=== PATIENT | male | born 1990 | race Caucasian/White ===

== ENCOUNTER 2016-10-15 10:00 | Inpatient (IN) | payer OTHER ==
[2016-10-15 10:42] VITALS: BMI 24.3
--- NOTE | 2016-10-15 13:20 | HP ---
COWS - Scale Resting Pulse: 0= [place] 80 or Below Sweatin= Chills/Flushing Restless Observation: 3= Extraneous Movement Pupil Size: 2= Moderately Dilated Bone or Joint Aches: 4=Acute Joint/Muscle Pain Runny Nose/ Eye Tearin= Runny Nose/Eyes GI Upset > 30mins: 3= Vomiting/Diarrhea Tremor Observation: 2= Slight Tremor Visible Yawning Observation: 2= >3x During Session Anxiety or Irritability: 1=Feels Anxious/Irritable Goose Flesh Skin: 0=Smooth Skin COWS Score: 20 Admission ROS S - HPI Chief Complaint: DETOX TX FOR HEROIN DEPENDENCE Allergies/Adverse Reactions: Allergies Allergy/AdvReac Type Severity Reaction Status Date / Time No Known Allergies Allergy Verified 10/15/16 11:07 History of Present Illness: 26 Y/O H/M WITH A HX OF HEROIN DEPENDENCE AND SPORADIC USE OF ECSTACY AND MARIJUANA SEEKING DETOX TX. FIRST TIME IN DETOX. Exam Limitations: No Limitations - Ebola screening Have you traveled outside of the country in the last 21 days: No Have you had contact with anyone from an Ebola affected area: No Have you been sick,other than usual withdrawal symptoms: No Do you have a fever: No - Review of Systems Constitutional: Chills, Loss of Appetite, Night Sweats, Changes in sleep EENT: reports: Tearing, Nose Congestion Respiratory: reports: No Symptoms reported Cardiac: reports: No Symptoms Reported GI: reports: Diarrhea, Nausea, Poor Fluid Intake, Vomiting : reports: No Symptoms Reported Musculoskeletal: reports: Back Pain, Joint Pain, Muscle Pain Integumentary: reports: Lumps (LEFT FOREARM SWELLING DUE TO IVD INJ.), Sweating Neuro: reports: No Symptoms reported Endocrine: reports: No Symptoms Reported Hematology: reports: No Symptoms Reported Psychiatric: reports: Orientated x3, Anxious Other Systems: Reviewed and Negative Patient History - Patient Medical History Hx Anemia: No Hx Asthma: No Hx Chronic Obstructive Pulmonary Disease (COPD): No Hx Cardiac Disorders: No Hx Hypertension: No Hx Hypercholesterolemia: No HX Cerebrovascular Accident: No Hx Seizures: No Hx Diabetes: No Hx Gastrointestinal Disorders: No Hx Genitourinary Disorders: No Hx Sexually Transmitted Disorders: No Hx Renal Disease (ESRD): No Hx Thyroid Disease: No Hx Human Immunodeficiency Virus (HIV): No (NEGATIVE HX) Hx Hepatitis C: No Hx Depression: No Hx Suicide Attempt: No Hx Bipolar Disorder: No Hx Schizophrenia: No - Patient Surgical History Past Surgical History: No Hx Neurologic Surgery: No Hx Cataract Extraction: No Hx Cardiac Surgery: No Hx Lung Surgery: No Hx Breast Surgery: No Hx Breast Biopsy: No Hx Abdominal Surgery: No Hx Appendectomy: No Hx Cholecystectomy: No Hx Genitourinary Surgery: No Hx Orthopedic Surgery: No Anesthesia Reaction: No - PPD History Previous Implant?: Yes Documented Results: Negative w/o proof Implanted On Prior R Admission?: No Results: TO BE DONE PPD to be Administered?: Yes - Reproductive History Patient is a Female of Child Bearing Age (11 -55 yrs old): No (MALE) - Smoking Cessation Smoking history: Current every day smoker Have you smoked in the past 12 months: Yes Aproximately how many cigarettes per day: 20 Hx Chewing Tobacco Use: No Initiated information on smoking cessation: Yes 'Breaking Loose' booklet given: 10/15/16 - Substance & Tx. History Hx Alcohol Use: No Hx Substance Use: Yes (HEROIN) Substance Use Type: Heroin Hx Substance Use Treatment: Yes - Substances Abused Heroin Route: Injection Frequency: Daily Amount used: 30 bags Age of first use: 26 Date of Last Use: 10/14/16 Family Disease History - Family Disease History Family Disease History: Diabetes: Grandparent, Other: Father (HTN) Admission Physical Exam BHS - Vital Signs Vital Signs: Vital Signs - 24 hr 10/15/16 10:39 Temperature 98.2 F Pulse Rate 76 Respiratory 18 Rate Blood Pressure 142/70 - Physical General Appearance: Yes: Moderate Distress, Irritable, Anxious HEENTM: Yes: EOMI, Normocephalic, ZOEY, Pharynx Normal Respiratory: Yes: Chest Non-Tender, Lungs Clear, Normal Breath Sounds, No Respiratory Distress Neck: Yes: Supple, Trachea in good position Breast: Yes: Breast Exam Deferred Cardiology: Yes: Regular Rhythm, Regular Rate, S1, S2 Abdominal: Yes: Normal Bowel Sounds, Non Tender, Flat, Soft Genitourinary: Yes: Other (N/C) Back: Yes: Within Normal Limits Musculoskeletal: Yes: full range of Motion, Gait Steady Extremities: Yes: Normal Range of Motion, Non-Tender Neurological: Yes: dietary services manager II-XII NML intact, Fully Oriented, Alert, Motor Strength 5/5 Integumentary: Yes: Dry, Warm, Track Gutierres (BOTH FOREARMS. SWELLING AND PAIN TO IVD TRACK ON LEFT FOREARM.) Lymphatic: Yes: Within Normal Limits - Diagnostic (1) Opioid dependence with withdrawal Current Visit: Yes Status: Acute (2) Marijuana abuse Current Visit: Yes Status: Acute (3) Ecstasy abuse Current Visit: Yes Status: Acute Cleared for Admission [facility] - Detox or Rehab [facility] Level of Care: Medically Managed Detox Regimen/Protocol: Methadone [facility] Breath Alcohol Content Breath Alcohol Content: 0 Urine Drug Screen - Results Drug Screen Negative: No Urine Drug Screen Results: THC-Marijuana, OPI-Opiates, MDMA-Ecstasy, TCA- Tricyclic Antidepress
[2016-10-15] MEDS ORDERED: MAG HYDROX/AL HYDROX/SIMETH 30 ML UNIT-DOSE CUP PO PRN (13:30)
[2016-10-15] MEDS ORDERED: MAGNESIUM CITRATE 300 ML BOTTLE PO PRN (13:30)
[2016-10-15] MEDS ORDERED: NICOTINE POLACRILEX 4 MG GUM BUC PRN (13:30)
[2016-10-15] MEDS ORDERED: ACETAMINOPHEN 325 MG TABLET (FP) PO PRN (13:30)
[2016-10-15] MEDS ORDERED: LOPERAMIDE HCL 2 MG CAPSULE PO PRN (13:30)
[2016-10-15] MEDS ORDERED: MENTHOL/PHENOL 1 EACH UD MM PRN (13:30)
[2016-10-15] MEDS ORDERED: guaiFENesin/D-METHORPHAN HB 10 ML UNIT-DOSE CUPS PO PRN (13:30)
[2016-10-15] MEDS ORDERED: P-EPHED 60MG/TRIPROLIDI 2.5MG TABLET PO PRN (13:30)
[2016-10-15] MEDS ORDERED: MAGNESIUM HYDROX 2400MG/30ML ORAL SUSPENSION 30 ML CUP PO PRN (13:30)
[2016-10-15] MEDS ORDERED: METHADONE HCL 10 MG TABLET (FOR DETOX USE ONLY) PO ONE ×3 (13:45→23:00)
[2016-10-15] MEDS: diazePAM 5 MG TABLET PO PRN ×2 (14:49→19:19)
[2016-10-15] MEDS: NICOTINE 21 MG/24 HOURS TOPICAL PATCH TD SCH (14:52)
[2016-10-15] MEDS: IBUPROFEN 400 MG TABLET (FP) PO PRN (15:10)
[2016-10-15 17:24] LABS: URINE APPEARANCE CLEAR; URINE BILIRUBIN NEGATIVE (NEGATIVE); URINE BLOOD NEGATIVE (NEGATIVE); URINE COLOR YELLOW; URINE GLUCOSE (UA) NEGATIVE (NEGATIVE); URINE KETONE NEGATIVE (NEGATIVE); URINE LEUK ESTERASE NEGATIVE (NEGATIVE); URINE NITRITE NEGATIVE (NEGATIVE); URINE PROTEIN 2+ (NEGATIVE); URINE UROBILINOGEN NEGATIVE E.U./dl (0.2-1.0)
[2016-10-15 18:01] LABS: URINE MUCUS FEW; URINE RBC 1 /hpf (0-3); URINE WBC 4 /hpf (3-5)
[2016-10-15] MEDS: THIAMINE HCL 100 MG TABLET (FP) PO SCH (22:39)
[2016-10-15] MEDS: diphenhydrAMINE HCL 50 MG CAPSULE PO PRN (22:39)
[2016-10-15] MEDS: BACITRACIN 0.9 GM PACKET TP SCH (22:39)
[2016-10-16] MEDS: diazePAM 5 MG TABLET PO PRN ×4 (06:31→22:48)
[2016-10-16] MEDS ORDERED: METHADONE HCL 10 MG TABLET (FOR DETOX USE ONLY) PO ONE (10:00)
[2016-10-16 11:13] LABS: MCH 25.8 pg (25.7-33.7); MCHC 32.6 g/dl (32.0-35.9); MEAN CELL VOLUME 79.2 fl (80-96); MEAN PLT VOLUME 8.7 fl (7.5-11.1); PLATELET COUNT 486 K/MM3 (134-434); RDW 13.7 % (11.9-15.9); WHITE BLOOD COUNT 6.3 K/mm3 (4.0-10.0)
[2016-10-16 11:23] LABS: SICKLE CELL SCREEN NEGATIVE (NEGATIVE)
[2016-10-16] MEDS: PRENATAL VITAMINS W/ FOLIC ACID TABLET (FP) PO SCH (11:36)
[2016-10-16] MEDS: NICOTINE 21 MG/24 HOURS TOPICAL PATCH TD SCH (11:37)
[2016-10-16] MEDS: BACITRACIN 0.9 GM PACKET TP SCH ×3 (11:37→22:44)
[2016-10-16] MEDS: IBUPROFEN 400 MG TABLET (FP) PO PRN (11:40)
[2016-10-16 11:58] LABS: ALBUMIN 3.9 g/dl (3.4-5.0); ALK PHOS 93 U/L (45-117); ANION GAP 10 (8-16); BILIRUBIN,TOTAL 0.2 mg/dL (0.2-1.0); CALCIUM 9.2 mg/dL (8.5-10.1); CO2 25 mmol/L (21-32); GLUCOSE,RANDOM 183 mg/dL (74-106); SGOT/AST 12 U/L (15-37); SGPT/ALT 24 U/L (12-78); TOT PROT 8.2 g/dl (6.4-8.2)
[2016-10-16 12:13] LABS: HIV 1 & 2 AB NEGATIVE; HIV 1 AGp24 NEGATIVE
[2016-10-16] MEDS ORDERED: CEPHALEXIN MONOHYDRATE 250 MG CAPSULE (FP) PO ONE (12:57)
--- NOTE | 2016-10-16 13:02 | PN ---
BHS COWS - Scale Resting Pulse: 1= [place] 81-100 Sweatin= Chills/Flushing Restless Observation: 1= Difficult to Sit Still Pupil Size: 1= Pupils >than Normal Bone or Joint Aches: 2= Severe Diffuse Aches Runny Nose/ Eye Tearin= Runny Nose/Eyes GI Upset > 30mins: 2= Nausea/Diarrhea Tremor Observation of Outstretched Hands: 2= Slight Tremor Visible Yawning Observation: 1= 1-2x During Session Anxiety or Irritability: 2=Irritable/Anxious Goose Flesh Skin: 3=Piloerection COWS Score: 18 BHS Progress Note (SOAP) Subjective: nausea, sweats, interrupted sleep, anxiety, tremor, chills, sweats, back pain, pain left forearm Objective: 10/16/16 13:00 Vital Signs - 24 hr 10/15/16 10/15/16 10/15/16 15:05 17:51 21:59 Temperature 97.7 F 99 F 97.9 F Pulse Rate 76 81 71 Respiratory 18 16 18 Rate Blood Pressure 150/82 142/62 145/87 10/16/16 10/16/16 10/16/16 00:30 03:30 06:30 Temperature 98.4 F Pulse Rate 72 Respiratory 16 18 18 Rate Blood Pressure 103/67 10/16/16 10:02 Temperature 98.6 F Pulse Rate 92 H Respiratory 16 Rate Blood Pressure 139/79 Laboratory Tests 10/15/16 10/15/16 10/16/16 11:20 16:00 06:10 WBC 6.3 RBC 4.98 Hgb 12.8 Hct 39.4 MCV 79.2 L MCHC 32.6 RDW 13.7 Plt Count 486 H MPV 8.7 Sickle Cell Screen Negative Sodium Potassium Chloride Carbon Dioxide Anion Gap BUN Creatinine Creat Clearance w eGFR Random Glucose Calcium Total Bilirubin AST ALT Alkaline Phosphatase Total Protein Albumin Urine Color Yellow Urine Appearance Clear Urine pH 7.0 Ur Specific [place] 1.019 Urine Protein 2+ H Urine Glucose (UA) Negative Urine Ketones Negative Urine Blood Negative Urine Nitrite Negative Urine Bilirubin Negative Urine Urobilinogen Negative Ur Leukocyte Esterase Negative Urine RBC 1 Urine WBC 4 Ur Epithelial Cells Rare Urine Mucus Few HIV 1&2 Antibody Screen Negative HIV P24 Antigen Negative 10/16/16 06:10 WBC RBC Hgb Hct MCV MCHC RDW Plt Count MPV Sickle Cell Screen Sodium 135 L Potassium 4.3 Chloride 100 Carbon Dioxide 25 Anion Gap 10 BUN 11 Creatinine 1.0 Creat Clearance w eGFR > 60 Random Glucose 183 H Calcium 9.2 Total Bilirubin 0.2 AST 12 L ALT 24 Alkaline Phosphatase 93 Total Protein 8.2 Albumin 3.9 Urine Color Urine Appearance Urine pH Ur Specific [place] Urine Protein Urine Glucose (UA) Urine Ketones Urine Blood Urine Nitrite Urine Bilirubin Urine Urobilinogen Ur Leukocyte Esterase Urine RBC Urine WBC Ur Epithelial Cells Urine Mucus HIV 1&2 Antibody Screen HIV P24 Antigen Assessment: 10/16/16 13:01 hard indurated site r forearm at prior injection site, no redness, tender on palpation, non fluctuant withdrawal sx, possible abscess Plan: cont detox, start keflex for possible abscess, naproxen and flexeril scheduled for pain and withdrawal, encourage fluids
[2016-10-16] MEDS: NAPROXEN 500 MG TABLET (FP) PO SCH ×2 (15:11→22:45)
[2016-10-16] MEDS: CYCLOBENZAPRINE HCL 10 MG TABLET (FP) PO SCH ×2 (15:13→22:45)
[2016-10-16] MEDS: THIAMINE HCL 100 MG TABLET (FP) PO SCH (22:44)
[2016-10-16] MEDS: CEPHALEXIN MONOHYDRATE 500 MG CAPSULE (UD) PO SCH (22:45)
[2016-10-16] MEDS: diphenhydrAMINE HCL 50 MG CAPSULE PO PRN (22:48)
[2016-10-17] MEDS: CYCLOBENZAPRINE HCL 10 MG TABLET (FP) PO SCH ×3 (05:28→22:17)
[2016-10-17] MEDS: diazePAM 5 MG TABLET PO PRN ×4 (05:28→23:45)
[2016-10-17] MEDS ORDERED: METHADONE HCL 5 MG TABLET (FOR DETOX USE ONLY) PO ONE (10:00)
[2016-10-17] MEDS: NAPROXEN 500 MG TABLET (FP) PO SCH ×2 (10:40→22:17)
[2016-10-17] MEDS: BACITRACIN 0.9 GM PACKET TP SCH ×2 (10:40→22:17)
[2016-10-17] MEDS: PRENATAL VITAMINS W/ FOLIC ACID TABLET (FP) PO SCH (10:40)
[2016-10-17] MEDS: hydrOXYzine PAMOATE 25 MG CAPSULE (FP) PO PRN (10:40)
[2016-10-17] MEDS: CEPHALEXIN MONOHYDRATE 500 MG CAPSULE (UD) PO SCH ×2 (10:40→22:17)
[2016-10-17] MEDS: NICOTINE 21 MG/24 HOURS TOPICAL PATCH TD SCH (10:41)
--- NOTE | 2016-10-17 11:12 | PN ---
BHS COWS - Scale Resting Pulse: 1= [place] 81-100 Sweatin= Chills/Flushing Restless Observation: 1= Difficult to Sit Still Pupil Size: 1= Pupils >than Normal Bone or Joint Aches: 2= Severe Diffuse Aches Runny Nose/ Eye Tearin= Nasal Congestion GI Upset > 30mins: 2= Nausea/Diarrhea Tremor Observation of Outstretched Hands: 2= Slight Tremor Visible Yawning Observation: 1= 1-2x During Session Anxiety or Irritability: 2=Irritable/Anxious Goose Flesh Skin: 3=Piloerection COWS Score: 17 BHS Progress Note (SOAP) Subjective: nausea, sweats, interrupted sleep, anxiety, tremor, sweats, arm pain Objective: 10/17/16 11:11 Vital Signs - 24 hr 10/16/16 10/16/16 10/16/16 14:29 18:00 23:03 Temperature 98.6 F 98.1 F 97.3 F L Pulse Rate 92 H 70 83 Respiratory 16 16 18 Rate Blood Pressure 141/76 143/72 123/86 10/17/16 10/17/16 10/17/16 00:30 03:30 06:00 Temperature 97.7 F Pulse Rate 64 Respiratory 16 18 18 Rate Blood Pressure 121/64 10/17/16 10:54 Temperature 98.2 F Pulse Rate 117 H Respiratory 18 Rate Blood Pressure 129/67 Laboratory Tests 10/15/16 10/15/16 10/16/16 11:20 16:00 06:10 WBC 6.3 RBC 4.98 Hgb 12.8 Hct 39.4 MCV 79.2 L MCHC 32.6 RDW 13.7 Plt Count 486 H MPV 8.7 Sickle Cell Screen Negative Sodium Potassium Chloride Carbon Dioxide Anion Gap BUN Creatinine Creat Clearance w eGFR Random Glucose Calcium Total Bilirubin AST ALT Alkaline Phosphatase Total Protein Albumin Urine Color Yellow Urine Appearance Clear Urine pH 7.0 Ur Specific [place] 1.019 Urine Protein 2+ H Urine Glucose (UA) Negative Urine Ketones Negative Urine Blood Negative Urine Nitrite Negative Urine Bilirubin Negative Urine Urobilinogen Negative Ur Leukocyte Esterase Negative Urine RBC 1 Urine WBC 4 Ur Epithelial Cells Rare Urine Mucus Few HIV 1&2 Antibody Screen Negative HIV P24 Antigen Negative 10/16/16 06:10 WBC RBC Hgb Hct MCV MCHC RDW Plt Count MPV Sickle Cell Screen Sodium 135 L Potassium 4.3 Chloride 100 Carbon Dioxide 25 Anion Gap 10 BUN 11 Creatinine 1.0 Creat Clearance w eGFR > 60 Random Glucose 183 H Calcium 9.2 Total Bilirubin 0.2 AST 12 L ALT 24 Alkaline Phosphatase 93 Total Protein 8.2 Albumin 3.9 Urine Color Urine Appearance Urine pH Ur Specific [place] Urine Protein Urine Glucose (UA) Urine Ketones Urine Blood Urine Nitrite Urine Bilirubin Urine Urobilinogen Ur Leukocyte Esterase Urine RBC Urine WBC Ur Epithelial Cells Urine Mucus HIV 1&2 Antibody Screen HIV P24 Antigen Assessment: 10/17/16 11:11 withdrawal sx, afebrile Plan: cont detox, fluids
[2016-10-17] MEDS ORDERED: ZOLPIDEM TARTRATE 5 MG TABLET PO PRN (22:00)
[2016-10-17] MEDS: THIAMINE HCL 100 MG TABLET (FP) PO SCH (22:18)
[2016-10-18] MEDS: diphenhydrAMINE HCL 50 MG CAPSULE PO PRN (02:00)
[2016-10-18] MEDS: diazePAM 5 MG TABLET PO PRN ×2 (03:45→10:34)
[2016-10-18] MEDS: CYCLOBENZAPRINE HCL 10 MG TABLET (FP) PO SCH ×2 (05:32→13:59)
[2016-10-18] MEDS ORDERED: METHADONE HCL 5 MG TABLET (FOR DETOX USE ONLY) PO ONE (10:00)
[2016-10-18] MEDS: CEPHALEXIN MONOHYDRATE 500 MG CAPSULE (UD) PO SCH (10:30)
[2016-10-18] MEDS: PRENATAL VITAMINS W/ FOLIC ACID TABLET (FP) PO SCH (10:30)
[2016-10-18] MEDS: NAPROXEN 500 MG TABLET (FP) PO SCH (10:30)
[2016-10-18] MEDS: NICOTINE 21 MG/24 HOURS TOPICAL PATCH TD SCH (10:31)
[2016-10-18] MEDS: BACITRACIN 0.9 GM PACKET TP SCH (10:31)
--- NOTE | 2016-10-18 11:03 | PN ---
BHS Progress Note (SOAP) Subjective: interrupted sleep, sweats, Objective: 10/18/16 10:59 Vital Signs Temperature 97.5 F L 10/18/16 10:11 Pulse Rate 88 10/18/16 10:11 Respiratory Rate 18 10/18/16 10:11 Blood Pressure 138/79 10/18/16 10:11 O2 Sat by Pulse Oximetry (%) Laboratory Tests 10/15/16 10/15/16 10/16/16 11:20 16:00 06:10 WBC 6.3 RBC 4.98 Hgb 12.8 Hct 39.4 MCV 79.2 L MCHC 32.6 RDW 13.7 Plt Count 486 H MPV 8.7 Sickle Cell Screen Negative Sodium Potassium Chloride Carbon Dioxide Anion Gap BUN Creatinine Creat Clearance w eGFR Random Glucose Calcium Total Bilirubin AST ALT Alkaline Phosphatase Total Protein Albumin Urine Color Yellow Urine Appearance Clear Urine pH 7.0 Ur Specific [place] 1.019 Urine Protein 2+ H Urine Glucose (UA) Negative Urine Ketones Negative Urine Blood Negative Urine Nitrite Negative Urine Bilirubin Negative Urine Urobilinogen Negative Ur Leukocyte Esterase Negative Urine RBC 1 Urine WBC 4 Ur Epithelial Cells Rare Urine Mucus Few RPR Titer HIV 1&2 Antibody Screen Negative HIV P24 Antigen Negative 10/16/16 10/16/16 06:10 06:10 WBC RBC Hgb Hct MCV MCHC RDW Plt Count MPV Sickle Cell Screen Sodium 135 L Potassium 4.3 Chloride 100 Carbon Dioxide 25 Anion Gap 10 BUN 11 Creatinine 1.0 Creat Clearance w eGFR > 60 Random Glucose 183 H Calcium 9.2 Total Bilirubin 0.2 AST 12 L ALT 24 Alkaline Phosphatase 93 Total Protein 8.2 Albumin 3.9 Urine Color Urine Appearance Urine pH Ur Specific [place] Urine Protein Urine Glucose (UA) Urine Ketones Urine Blood Urine Nitrite Urine Bilirubin Urine Urobilinogen Ur Leukocyte Esterase Urine RBC Urine WBC Ur Epithelial Cells Urine Mucus RPR Titer Nonreactive HIV 1&2 Antibody Screen HIV P24 Antigen pt aox3 in nad ambulating Assessment: 10/18/16 11:05 withdrawl sx's lbp anxiety 10/18/16 11:05 10/18/16 11:07 Plan: cont. detox increase fluids psych eval.
[2016-10-18] MEDS ORDERED: LIDOCAINE 5% TOPICAL PATCH TP ONE (11:12)
--- NOTE | 2016-10-18 12:48 | EKG ---
Test Reason : Blood Pressure : / mmHG Vent. Rate : 063 BPM Atrial Rate : 063 BPM P-R Int : 120 ms QRS Dur : 098 ms QT Int : 490 ms P-R-T Axes : 009 089 034 degrees QTc Int : 501 ms NORMAL SINUS RHYTHM WITH SINUS ARRHYTHMIA VOLTAGE CRITERIA FOR LEFT VENTRICULAR HYPERTROPHY PROLONGED QT ABNORMAL ECG NO PREVIOUS ECGS AVAILABLE Confirmed by LISSA ROMAN MD ([id number]) on 10/18/2016 12:48:16 PM Referred By: Confirmed By:LISSA ROMAN MD
[2016-10-18] MEDS: hydrOXYzine PAMOATE 25 MG CAPSULE (FP) PO PRN ×2 (14:02→18:24)
--- NOTE | 2016-10-18 16:09 | CONSULT ---
[facility] Psychiatric Consult - Data Date of interview: 10/18/16 Admission source: [facility] Identifying data: First admisssion to [facility] for this 26 y/o male seeking detox treatment on for heroin,marijuana and methamphetamine dependence.Patient is single without children,domiciled and currently self- sufficient (employed). Substance Abuse History: - Smoking Cessation. Smoking history: Current every day smoker. Have you smoked in the past 12 months: Yes. Aproximately how many cigarettes per day: 20. Hx Chewing Tobacco Use: No. Initiated information on smoking cessation: Yes. 'Breaking Loose' booklet given: 10/15/16. - Substance & Tx. History. Hx Alcohol Use: No. Hx Substance Use: Yes (HEROIN). Substance Use Type: Heroin. Hx Substance Use Treatment: Yes. - Substances Abused. Heroin. Route: Injection. Frequency: Daily. Amount used: 30 bags. Age of first use: 26. Date of Last Use: 10/14/16. Confirmed by patient. Medical History: No reported medical problems.Patient endorses good general health. Psychiatric History: Patient denies. Physical/Sexual Abuse/Trauma History: Patient denies. Additional Comment: Urine Drug Screen Results: THC-Marijuana, OPI-Opiates, MDMA- Ecstasy, TCA-Tricyclic Antidepressants.Noted. Mental Status Exam - Mental Status Exam Alert and Oriented to: Time, Place, Person Cognitive Function: Good Patient Appearance: Well Groomed Mood: Nervous, Anxious, Apprehensive Affect: Mood Congruent Patient Behavior: Fatigued, Appropriate, Cooperative Speech Pattern: Clear, Appropriate Voice Loudness: Normal Thought Process: Intact, Goal Oriented Thought Disorder: Not Present Hallucinations: Denies Suicidal Ideation: Denies Homicidal Ideation: Denies Insight/Judgement: Poor Sleep: Poorly, Difficulty falling asleep (patient made a request for seroquel) Appetite: Good Muscle strength/Tone: Normal Gait/Station: Normal Psychiatric Findings - Problem List ([place] 1, 2,3) (1) Ecstasy abuse Current Visit: Yes Status: Acute (2) Marijuana abuse Current Visit: Yes Status: Acute (3) Opioid dependence with withdrawal Current Visit: Yes Status: Acute (4) Nicotine dependence Current Visit: Yes Status: Acute (5) Substance-induced sleep disorder Current Visit: Yes Status: Acute - Initial Treatment Plan Initial Treatment Plan: Psychoeducation.Detoxification.Seroquel 50 mg po hs.Side effects/benefits discussed with the patient.He agrees with this careplan.Observation.
[2016-10-18 17:15] VITALS: BP 135/84; PULSE 94; TEMP 97
--- NOTE | 2016-10-18 21:34 | PN ---
[facility] Progress Note Note: INFORMED CLIENT WANTS TO SIGN OUT AMA. PER STAFF CLIENT WANTS TO LEAVE WITH ANOTHER PATIENT THAT IS SIGNING OUT AMA. CLIENT WAS SEEN. CLIENT STATES HE HAS TO REPORT TO WORK IN THE MORNING. D/W CLIENT WILLING TO ADJUST THERAPY SO HE MAY LEAVE IN THE MORNING. CLIENT DECLINES AT THIS TIME AND WANTS TO SIGN AMA NOW. RISKS IN INTERRUPTING TXMENT AND FUTURE TXMENT DISCUSSED. CLIENT VERBALIZED UNDERSTANDING. Vital Signs Temperature 97.0 F L 10/18/16 17:15 Pulse Rate 94 H 10/18/16 17:15 Respiratory Rate 20 10/18/16 17:15 Blood Pressure 135/84 10/18/16 17:15 O2 Sat by Pulse Oximetry (%)
--- NOTE | 2016-10-18 21:37 | DS ---
[facility] Detox Discharge Summary Admission Date: 10/15/16 Discharge Date: 10/18/16 - History Present History: Cannabis Dependence, Opioid Dependence Additional Comments: ECSTASY ABUSE Pertinent Past History: NICOTINE DEPENDENCE - Physical Exam Results Vital Signs: Vital Signs Temperature 97.0 F L 10/18/16 17:15 Pulse Rate 94 H 10/18/16 17:15 Respiratory Rate 20 10/18/16 17:15 Blood Pressure 135/84 10/18/16 17:15 O2 Sat by Pulse Oximetry (%) Pertinent Admission Physical Exam Findings: WITHDRAWAL SX'S - Medication Discharge Medications: Ambulatory Orders NK [No Known Home Medication] 10/15/16 - Diagnosis (1) Ecstasy abuse Current Visit: Yes Status: Acute (2) Marijuana abuse Current Visit: Yes Status: Acute (3) Nicotine dependence Current Visit: Yes Status: Chronic Qualifiers: Nicotine product type: cigarettes Substance use status: uncomplicated Qualified Code(s): F17.210 - Nicotine dependence, cigarettes, uncomplicated (4) Opioid dependence with withdrawal Current Visit: Yes Status: Acute (5) Substance-induced sleep disorder Current Visit: Yes Status: Acute - AMA Did Patient Leave Against Medical Advice: Yes
[2016-10-18] MEDS ORDERED: QUEtiapine FUMARATE 50 MG TABLET PO SCH (22:00)
[2016-10-19] MEDS ORDERED: METHADONE HCL 10 MG TABLET (FOR DETOX USE ONLY) PO ONE (10:00)
[2016-10-19] MEDS ORDERED: LIDOCAINE 5% TOPICAL PATCH TP SCH (10:00)
[2016-10-20] MEDS ORDERED: METHADONE HCL 5 MG TABLET (FOR DETOX USE ONLY) PO ONE (06:00)
== END 2016-10-18 21:30 | disposition left against medical advice (07) | DRG 770 ==
LOC: YASAS 10:00 → Y6N 11:43
PROVIDERS: ADMIT Internal Medicine; ATTEND Internal Medicine
PROC: HZ2ZZZZ Detoxification Services for Substance Abuse Treatment (ICD-10-PCS; principal; 2016-10-15)
DX: F10.230 Alcohol dependence with withdrawal, uncomplicated (principal); F15.10 Other stimulant abuse, uncomplicated; F12.10 Cannabis abuse, uncomplicated; F17.210 Nicotine dependence, cigarettes, uncomplicated; F41.9 Anxiety disorder, unspecified; F19.282 Other psychoactive substance dependence with psychoactive substance-induced sleep disorder; M54.5 Low back pain; L02.413 Cutaneous abscess of right upper limb
CPT/HCPCS: 36415; 80053; 81003; 81015; 85027; 85660; 86593; 87389; 93005; 93010

== ENCOUNTER 2016-11-16 14:47 | Inpatient (IN) | payer OTHER ==
[2016-11-16 16:11] VITALS: BMI 25.7
--- NOTE | 2016-11-16 18:29 | HP ---
Admission ROS [facility] Chief Complaint: I WANT TO GO TO REHAB Allergies/Adverse Reactions: Allergies Allergy/AdvReac Type Severity Reaction Status Date / Time No Known Allergies Allergy Verified 10/15/16 11:07 History of Present Illness: 26 YEARS OLD MALE WITH LONG HISTORY OF COCAINE NICOTINE DEPENDENCE, ECZEMA AND ANXIETY IS ADMITTED TO REHAB Exam Limitations: No Limitations - Ebola screening Have you traveled outside of the country in the last 21 days: No Have you had contact with anyone from an Ebola affected area: No Have you been sick,other than usual withdrawal symptoms: No Do you have a fever: No - Review of Systems Constitutional: Weight Stable EENT: reports: No Symptoms Reported Respiratory: reports: No Symptoms reported Cardiac: reports: No Symptoms Reported GI: reports: No Symptoms Reported : reports: No Symptoms Reported Musculoskeletal: reports: No Symptoms Reported, Other Integumentary: reports: Lesions (FACE AND NECK) Neuro: reports: No Symptoms reported Endocrine: reports: No Symptoms Reported Hematology: reports: No Symptoms Reported Psychiatric: reports: Judgement Intact, Orientated x3, Anxious Other Systems: Reviewed and Negative Patient History - Patient Medical History Hx Anemia: No Hx Asthma: No Hx Chronic Obstructive Pulmonary Disease (COPD): No Hx Cancer: No Hx Cardiac Disorders: No Hx Congestive Heart Failure: No Hx Hypertension: No Hx Hypercholesterolemia: No Hx Pacemaker: No HX Cerebrovascular Accident: No Hx Seizures: No Hx Dementia: No Hx Diabetes: No Hx Gastrointestinal Disorders: No Hx Liver Disease: No Hx Genitourinary Disorders: No Hx Sexually Transmitted Disorders: No Hx Renal Disease (ESRD): No Hx Thyroid Disease: No Hx Human Immunodeficiency Virus (HIV): No (NEGATIVE HX) Hx Hepatitis C: No Hx Depression: Yes (ANXIETY) Hx Suicide Attempt: No Hx Bipolar Disorder: No Hx Schizophrenia: No - Patient Surgical History Past Surgical History: No Hx Neurologic Surgery: No Hx Cataract Extraction: No Hx Cardiac Surgery: No Hx Lung Surgery: No Hx Breast Surgery: No Hx Breast Biopsy: No Hx Abdominal Surgery: No Hx Appendectomy: No Hx Cholecystectomy: No Hx Genitourinary Surgery: No Hx Orthopedic Surgery: No - PPD History Previous Implant?: Yes Documented Results: Negative w/proof Implanted On Prior R Admission?: Yes Date: 10/17/16 Results: TO BE DONE PPD to be Administered?: No - Smoking Cessation Smoking history: Current every day smoker Have you smoked in the past 12 months: Yes Aproximately how many cigarettes per day: 10 Cigars Per Day: 0 Hx Chewing Tobacco Use: No Initiated information on smoking cessation: Yes 'Breaking Loose' booklet given: 11/16/16 - Substance & Tx. History Hx Alcohol Use: No Hx Substance Use: Yes Substance Use Type: Cocaine, Opiates Hx Substance Use Treatment: Yes - Substances Abused HEROIN Route: Injection Frequency: Daily Amount used: 4 BAGS Age of first use: 25 Date of Last Use: 11/15/16 Family Disease History - Family Disease History Family Disease History: Diabetes: Grandparent, Other: Father (HTN) Admission Physical Exam [facility] - Vital Signs Vital Signs: Vital Signs - 24 hr 11/16/16 16:07 Temperature 97.6 F Pulse Rate 64 Respiratory 18 Rate Blood Pressure 130/75 - Physical General Appearance: Yes: No Apparent Distress, Appropriately Dressed, Thin HEENTM: Yes: Hearing grossly Normal, Normal ENT Inspection, Normocephalic, Normal Voice Respiratory: Yes: Chest Non-Tender, Lungs Clear, Normal Breath Sounds, No Respiratory Distress, No Accessory Muscle Use Neck: Yes: Supple, Trachea in good position Breast: Yes: Breasts Symetrical Cardiology: Yes: Regular Rhythm, Regular Rate, S1, S2 Abdominal: Yes: Non Tender, Soft Genitourinary: Yes: Within Normal Limits Back: Yes: Normal Inspection Musculoskeletal: Yes: full range of Motion, Gait Steady Extremities: Yes: Normal Range of Motion, Non-Tender Neurological: Yes: Fully Oriented, Alert, Motor Strength 5/5, Normal Response Integumentary: Yes: Warm, Track Gutierres Lymphatic: Yes: Within Normal Limits - Diagnostic (1) Opioid dependence with withdrawal Current Visit: Yes Status: Acute (2) Nicotine dependence Current Visit: Yes Status: Acute Qualifiers: Nicotine product type: cigarettes Substance use status: in withdrawal Qualified Code(s): F17.213 - Nicotine dependence, cigarettes, with withdrawal (3) Eczema of eyelid Current Visit: Yes Status: Acute Comment: FACE + NECK TRIAM Cleared for Admission [facility] - Detox or Rehab [facility] Level of Care: Observation Bed Detox Regimen/Protocol: Not Applicable Claeared for Rehab Admission: Yes [facility] Breath Alcohol Content Breath Alcohol Content: 0 Urine Drug Screen - Results Drug Screen Negative: No Urine Drug Screen Results: SAMAN-Cocaine, OPI-Opiates
[2016-11-16] MEDS ORDERED: guaiFENesin/D-METHORPHAN HB 10 ML UNIT-DOSE CUPS PO PRN (18:32)
[2016-11-16] MEDS ORDERED: MAGNESIUM HYDROX 2400MG/30ML ORAL SUSPENSION 30 ML CUP PO PRN (18:32)
[2016-11-16] MEDS ORDERED: ACETAMINOPHEN 325 MG TABLET (FP) PO PRN (18:32)
[2016-11-16] MEDS ORDERED: MENTHOL/PHENOL 1 EACH UD MM PRN (18:32)
[2016-11-16] MEDS ORDERED: P-EPHED 60MG/TRIPROLIDI 2.5MG TABLET PO PRN (18:32)
[2016-11-16] MEDS ORDERED: LOPERAMIDE HCL 2 MG CAPSULE PO PRN (18:32)
[2016-11-16] MEDS ORDERED: MAGNESIUM CITRATE 300 ML BOTTLE PO PRN (18:32)
[2016-11-16] MEDS ORDERED: MAG HYDROX/AL HYDROX/SIMETH 30 ML UNIT-DOSE CUP PO PRN (18:32)
[2016-11-16] MEDS ORDERED: IBUPROFEN 400 MG TABLET (FP) PO PRN (18:32)
[2016-11-16] MEDS ORDERED: COLLOIDAL OATMEAL 1 BAR EACH TP PRN (18:34)
[2016-11-16] MEDS: THIAMINE HCL 100 MG TABLET (FP) PO SCH (21:20)
[2016-11-16] MEDS: TRIAMCINOLONE ACET 0.5% OINT 15 GM TUBE TP SCH (21:20)
[2016-11-16 23:03] LABS: URINE APPEARANCE CLEAR; URINE BILIRUBIN NEGATIVE (NEGATIVE); URINE BLOOD NEGATIVE (NEGATIVE); URINE COLOR LTYELLOW; URINE GLUCOSE (UA) NEGATIVE (NEGATIVE); URINE KETONE NEGATIVE (NEGATIVE); URINE LEUK ESTERASE NEGATIVE (NEGATIVE); URINE NITRITE NEGATIVE (NEGATIVE); URINE PROTEIN NEGATIVE (NEGATIVE); URINE UROBILINOGEN NEGATIVE E.U./dl (0.2-1.0)
--- NOTE | 2016-11-17 06:44 | HP ---
Psychiatrist Admission - Data Date of interview: 11/17/16 Admission source: Self-referred Identifying data: [facility] for this 26 years old single male, unemployed with no source of income , domiciled living with girlfriend seeking rehab treatment for opoid and marijuana Medical History: Significant for Eczema. Patient is on methadone 40 mg po daily. Smokes 10 cigarettes daily Psychiatric History: Denies history of previous psychiatric treatment Physical/Sexual Abuse/Trauma History: Denies history of physical, sexual abuse as well as DV relationship Additional Comment: Reports history of 5 previous midemeanor arrests. Denies being on probation Vital Signs: Vital Signs - 24 hr 11/16/16 11/17/16 11/17/16 16:07 00:46 03:46 Temperature 97.6 F Pulse Rate 64 Respiratory 18 18 18 Rate Blood Pressure 130/75 Allergies/Adverse Reactions: Allergies Allergy/AdvReac Type Severity Reaction Status Date / Time No Known Allergies Allergy Verified 11/16/16 22:32 Date of last physical exam: 11/16/16 Concur with the findings of this exam: Yes - Substance Abuse/Tx History Hx Alcohol Use: No Hx Substance Use: Yes Substance Use Type: Heroin (Started using heroin at age 25, consumes 4 bags daily. Last used on 11/15/16), Marijuana (Started smoking marijuana at age 14, consumes one blunt daily. Last smoked on 11/02/16) Hx Substance Use Treatment: Yes (One recent previous incomplete inpt detox @ [facility] rehab) - Admission Criteria Previous failed treatment: Yes Comorbidities: Yes Lacks judgement: Yes Mental Status Exam - Mental Status Exam Alert and Oriented to: Time, Place, Person Cognitive Function: Fair Patient Appearance: Well Groomed Mood: Anxious Affect: Appropriate Patient Behavior: Cooperative Speech Pattern: Clear Voice Loudness: Normal Thought Process: Intact Thought Disorder: Not Present Hallucinations: Denies Suicidal Ideation: Denies Homicidal Ideation: Denies Insight/Judgement: Fair Sleep: Poorly Appetite: Good Muscle strength/Tone: Normal Gait/Station: Normal Psychiatric Findings - Problem List ([place] 1, 2,3) (1) Opioid dependence with withdrawal Current Visit: Yes Status: Acute (2) Cannabis abuse Current Visit: No Status: Acute (3) Opioid dependence on agonist therapy Current Visit: Yes Status: Acute (4) Nicotine dependence Current Visit: Yes Status: Acute Qualifiers: Nicotine product type: cigarettes Substance use status: in withdrawal Qualified Code(s): F17.213 - Nicotine dependence, cigarettes, with withdrawal (5) Eczema of eyelid Current Visit: Yes Status: Acute Comment: FACE + NECK TRIAM (6) Substance-induced anxiety disorder Current Visit: Yes Status: Acute - Initial Treatment Plan Initial Treatment Plan: 1) Start Hydroxyzine 50 mg po Q 4hrs prn for anxiety. 2 ) Monitor progress
[2016-11-17] MEDS ORDERED: METHADONE HCL 40 MG DISPERSABLE TABLET PO SCH (07:30)
[2016-11-17] MEDS ORDERED: METHADONE HCL 10 MG TABLET ONE (07:51)
[2016-11-17] MEDS ORDERED: METHADONE HCL 5 MG TABLET ONE (07:51)
[2016-11-17] MEDS: METHADONE 30 MG, METHADONE 5 MG PO SCH (07:52)
[2016-11-17] MEDS: PRENATAL VITAMINS W/ FOLIC ACID TABLET (FP) PO SCH (09:52)
[2016-11-17] MEDS: NICOTINE 14 MG/24 HOURS TOPICAL PATCH TD SCH (09:52)
[2016-11-17 10:12] LABS: MCH 25.5 pg (25.7-33.7); MCHC 32.1 g/dl (32.0-35.9); MEAN CELL VOLUME 79.4 fl (80-96); MEAN PLT VOLUME 8.7 fl (7.5-11.1); PLATELET COUNT 258 K/MM3 (134-434); RDW 15.4 % (11.9-15.9); WHITE BLOOD COUNT 4.2 K/mm3 (4.0-10.0)
[2016-11-17 10:18] LABS: ALBUMIN 3.5 g/dl (3.4-5.0); ANION GAP 8 (8-16); CO2 29 mmol/L (21-32)
[2016-11-17 10:24] LABS: ALK PHOS 65 U/L (45-117); BILIRUBIN,TOTAL 0.4 mg/dL (0.2-1.0); CREATININE 0.9 mg/dL (0.7-1.3); GLUCOSE,RANDOM 78 mg/dL (74-106); SGOT/AST 15 U/L (15-37); SGPT/ALT 27 U/L (12-78); TOT PROT 6.5 g/dl (6.4-8.2)
[2016-11-17] MEDS: TRIAMCINOLONE ACET 0.5% OINT 15 GM TUBE TP SCH ×4 (10:28→21:59)
[2016-11-17 11:38] LABS: HIV 1 & 2 AB NEGATIVE; HIV 1 AGp24 NEGATIVE
--- NOTE | 2016-11-17 16:12 | EKG ---
Test Reason : Blood Pressure : / mmHG Vent. Rate : 057 BPM Atrial Rate : 057 BPM P-R Int : 126 ms QRS Dur : 096 ms QT Int : 484 ms P-R-T Axes : 003 076 017 degrees QTc Int : 471 ms SINUS BRADYCARDIA MODERATE VOLTAGE CRITERIA FOR LVH, MAY BE NORMAL VARIANT BORDERLINE ECG WHEN COMPARED WITH ECG OF 15-OCT-2016 15:05, NO SIGNIFICANT CHANGE WAS FOUND Confirmed by SHEREE REYES MD ([id number]) on 11/17/2016 4:11:43 PM Referred By: Confirmed By:SHEREE REYES MD
[2016-11-17] MEDS: diphenhydrAMINE HCL 50 MG CAPSULE PO PRN (21:58)
[2016-11-17] MEDS: THIAMINE HCL 100 MG TABLET (FP) PO SCH (21:58)
[2016-11-18] MEDS ORDERED: METHADONE HCL 10 MG TABLET ONE (05:52)
[2016-11-18] MEDS ORDERED: METHADONE HCL 5 MG TABLET ONE (05:53)
[2016-11-18] MEDS: METHADONE 30 MG, METHADONE 5 MG PO SCH (06:46)
[2016-11-18] MEDS: PRENATAL VITAMINS W/ FOLIC ACID TABLET (FP) PO SCH (10:15)
[2016-11-18] MEDS: hydrOXYzine PAMOATE 50 MG CAPSULE (FP) PO PRN ×3 (10:15→21:56)
[2016-11-18] MEDS: NICOTINE POLACRILEX 2 MG GUM BC PRN ×3 (10:16→21:57)
[2016-11-18] MEDS: NICOTINE 14 MG/24 HOURS TOPICAL PATCH TD SCH (10:16)
[2016-11-18] MEDS: TRIAMCINOLONE ACET 0.5% OINT 15 GM TUBE TP SCH ×4 (10:17→22:21)
[2016-11-18] MEDS: THIAMINE HCL 100 MG TABLET (FP) PO SCH (21:55)
[2016-11-18] MEDS: diphenhydrAMINE HCL 50 MG CAPSULE PO PRN (21:56)
[2016-11-19] MEDS ORDERED: METHADONE HCL 10 MG TABLET ONE (03:18)
[2016-11-19] MEDS ORDERED: METHADONE HCL 5 MG TABLET ONE (03:19)
[2016-11-19] MEDS: METHADONE 30 MG, METHADONE 5 MG PO SCH (06:32)
[2016-11-19] MEDS: NICOTINE 14 MG/24 HOURS TOPICAL PATCH TD SCH (11:24)
[2016-11-19] MEDS: PRENATAL VITAMINS W/ FOLIC ACID TABLET (FP) PO SCH (11:24)
[2016-11-19] MEDS: TRIAMCINOLONE ACET 0.5% OINT 15 GM TUBE TP SCH ×4 (11:24→21:57)
[2016-11-19] MEDS: hydrOXYzine PAMOATE 50 MG CAPSULE (FP) PO PRN (11:26)
[2016-11-19] MEDS: NICOTINE POLACRILEX 2 MG GUM BC PRN (11:27)
[2016-11-19] MEDS: THIAMINE HCL 100 MG TABLET (FP) PO SCH (21:57)
[2016-11-19] MEDS: diphenhydrAMINE HCL 50 MG CAPSULE PO PRN (21:57)
[2016-11-20] MEDS ORDERED: METHADONE HCL 10 MG TABLET ONE (05:26)
[2016-11-20] MEDS ORDERED: METHADONE HCL 5 MG TABLET ONE (05:27)
[2016-11-20] MEDS: METHADONE 30 MG, METHADONE 5 MG PO SCH (06:33)
[2016-11-20] MEDS: PRENATAL VITAMINS W/ FOLIC ACID TABLET (FP) PO SCH (09:56)
[2016-11-20] MEDS: NICOTINE 14 MG/24 HOURS TOPICAL PATCH TD SCH (09:56)
[2016-11-20] MEDS: NICOTINE POLACRILEX 2 MG GUM BC PRN ×3 (09:58→21:57)
[2016-11-20] MEDS: hydrOXYzine PAMOATE 50 MG CAPSULE (FP) PO PRN ×3 (09:58→21:56)
[2016-11-20] MEDS: TRIAMCINOLONE ACET 0.5% OINT 15 GM TUBE TP SCH ×3 (10:09→22:35)
[2016-11-20] MEDS: THIAMINE HCL 100 MG TABLET (FP) PO SCH (21:56)
[2016-11-21] MEDS: diphenhydrAMINE HCL 50 MG CAPSULE PO PRN ×2 (00:01→23:37)
[2016-11-21] MEDS ORDERED: METHADONE HCL 10 MG TABLET ONE (05:45)
[2016-11-21] MEDS ORDERED: METHADONE HCL 5 MG TABLET ONE (05:45)
[2016-11-21] MEDS: METHADONE 30 MG, METHADONE 5 MG PO SCH (07:12)
[2016-11-21] MEDS: TRIAMCINOLONE ACET 0.5% OINT 15 GM TUBE TP SCH ×3 (10:04→22:44)
[2016-11-21] MEDS: NICOTINE 14 MG/24 HOURS TOPICAL PATCH TD SCH (10:04)
[2016-11-21] MEDS: PRENATAL VITAMINS W/ FOLIC ACID TABLET (FP) PO SCH (10:04)
[2016-11-21] MEDS: hydrOXYzine PAMOATE 50 MG CAPSULE (FP) PO PRN ×3 (10:05→21:17)
[2016-11-21] MEDS: NICOTINE POLACRILEX 2 MG GUM BC PRN ×3 (10:05→21:18)
[2016-11-21] MEDS: THIAMINE HCL 100 MG TABLET (FP) PO SCH (21:17)
[2016-11-22] MEDS ORDERED: METHADONE HCL 5 MG TABLET ONE (04:14)
[2016-11-22] MEDS ORDERED: METHADONE HCL 10 MG TABLET ONE (04:14)
[2016-11-22] MEDS: METHADONE 30 MG, METHADONE 5 MG PO SCH (06:33)
[2016-11-22] MEDS: PRENATAL VITAMINS W/ FOLIC ACID TABLET (FP) PO SCH (10:25)
[2016-11-22] MEDS: NICOTINE 14 MG/24 HOURS TOPICAL PATCH TD SCH (10:25)
[2016-11-22] MEDS: hydrOXYzine PAMOATE 50 MG CAPSULE (FP) PO PRN ×3 (10:25→21:14)
[2016-11-22] MEDS: TRIAMCINOLONE ACET 0.5% OINT 15 GM TUBE TP SCH ×4 (10:27→21:15)
[2016-11-22] MEDS: NICOTINE POLACRILEX 2 MG GUM BC PRN ×2 (10:27→14:37)
[2016-11-22] MEDS: THIAMINE HCL 100 MG TABLET (FP) PO SCH (21:14)
[2016-11-22] MEDS: diphenhydrAMINE HCL 50 MG CAPSULE PO PRN ×2 (22:04→22:27)
[2016-11-23] MEDS ORDERED: METHADONE HCL 10 MG TABLET ONE (04:45)
[2016-11-23] MEDS ORDERED: METHADONE HCL 5 MG TABLET ONE (04:45)
[2016-11-23] MEDS: METHADONE 30 MG, METHADONE 5 MG PO SCH (06:21)
[2016-11-23] MEDS: PRENATAL VITAMINS W/ FOLIC ACID TABLET (FP) PO SCH (10:05)
[2016-11-23] MEDS: hydrOXYzine PAMOATE 50 MG CAPSULE (FP) PO PRN ×3 (10:05→21:14)
[2016-11-23] MEDS: NICOTINE 14 MG/24 HOURS TOPICAL PATCH TD SCH (10:05)
[2016-11-23] MEDS: TRIAMCINOLONE ACET 0.5% OINT 15 GM TUBE TP SCH ×3 (10:06→23:43)
[2016-11-23] MEDS: NICOTINE POLACRILEX 2 MG GUM BC PRN (13:25)
[2016-11-23] MEDS: THIAMINE HCL 100 MG TABLET (FP) PO SCH (21:14)
[2016-11-23] MEDS: diphenhydrAMINE HCL 50 MG CAPSULE PO PRN (22:38)
[2016-11-24] MEDS ORDERED: METHADONE HCL 5 MG TABLET ONE (04:16)
[2016-11-24] MEDS ORDERED: METHADONE HCL 10 MG TABLET ONE (04:16)
[2016-11-24] MEDS: METHADONE 30 MG, METHADONE 5 MG PO SCH (06:24)
[2016-11-24] MEDS: hydrOXYzine PAMOATE 50 MG CAPSULE (FP) PO PRN ×2 (07:39→18:49)
[2016-11-24] MEDS: TRIAMCINOLONE ACET 0.5% OINT 15 GM TUBE TP SCH ×4 (10:02→21:36)
[2016-11-24] MEDS: PRENATAL VITAMINS W/ FOLIC ACID TABLET (FP) PO SCH (10:02)
[2016-11-24] MEDS: NICOTINE 14 MG/24 HOURS TOPICAL PATCH TD SCH (10:02)
[2016-11-24] MEDS: NICOTINE POLACRILEX 2 MG GUM BC PRN ×2 (10:02→18:50)
--- NOTE | 2016-11-24 12:06 | PN ---
Psychiatric Progress Note Vital Signs: Vital Signs Period Temp Pulse Resp BP Sys/[place] Pulse Ox Last 24 Hr 98.4 F 58 18-20 126/77 Date of Session: 11/24/16 Chief Complaint:: Insomnia HPI: Patient addressing Opoid Dependence and Cannabis Abuse comorbid with Nicotine Dependence and Substance-Induced Anxiety Disorder Current Medications: Active Medications Generic Name Dose Route Start Last Admin Trade Name Freq PRN Reason Stop Dose Admin Acetaminophen 650 mg 11/16/16 18:32 Tylenol - PO Q4H PRN PAIN Al Hydroxide/Mg Hydroxide 30 ml 11/16/16 18:32 Mylanta Oral Suspension - PO Q6H PRN DYSPEPSIA Colloidal Oatmeal 1 applic 11/16/16 18:34 11/16/16 19:47 Aveeno Soap - TP 1 applic DAILY PRN Administration HYGEINE Diphenhydramine HCl 50 mg 11/16/16 18:32 11/23/16 22:38 Benadryl - PO 50 mg HSMR1 PRN Administration INSOMNIA Eucalyptus/Menthol/Phenol/Sorbitol 1 each 11/16/16 18:32 Cepastat Lozenge - MM Q4H PRN SORE THROAT Guaifenesin 10 ml 11/16/16 18:32 Robitussin Dm - PO Q6H PRN COUGH Hydroxyzine Pamoate 50 mg 11/17/16 12:37 11/24/16 07:39 Vistaril - PO 50 mg Q4H PRN Administration ANXIETY Ibuprofen 400 mg 11/16/16 18:32 Motrin - PO Q6H PRN SEVERE PAIN Loperamide HCl 4 mg 11/16/16 18:32 Imodium - PO Q6H PRN DIARRHEA Magnesium Citrate 300 ml 11/16/16 18:32 Citroma - PO Q48H PRN CONSTIPATION Magnesium Hydroxide 30 ml 11/16/16 18:32 11/21/16 10:05 Milk Of Magnesia - PO 30 ml DAILY PRN Administration CONSTIPATION Methadone HCl 30 mg/ Methadone 35 mg 11/23/16 06:00 11/24/16 06:24 HCl 5 mg PO 35 mg DAILY@0600 ALE Administration Nicotine 14 mg 11/17/16 10:00 11/24/16 10:02 Nicoderm Patch - TD 14 mg DAILY ALE Administration Nicotine Polacrilex 2 mg 11/16/16 18:32 11/24/16 10:02 Nicorette Gum - BC 2 mg Q2H PRN Administration NICOTINE REPLACEMENT RX Multivit/Folic Acid/Iron 1 tab 11/17/16 10:00 11/24/16 10:02 Vitamins (Sjr) - PO 1 tab DAILY ALE Administration Pseudoephedrine/Triprolidine 1 combo 11/16/16 18:32 Actifed - PO TID PRN NASAL CONGESTION Thiamine HCl 100 mg 11/16/16 22:00 11/23/16 21:14 Vitamin B1 - PO 100 mg HS ALE Administration Triamcinolone Acetonide 1 applic 11/16/16 22:00 11/24/16 10:02 Aristocort 0.5% Ointment - TP Not Given QID ALE Medication(s) Change(s): Start Trazadone 100 mg po HS for insomnia Current Side Effect: No Lab tests ordered: Yes Lab tests reviewed: Yes Provider note:: Patient reports experiencing difficulty to sleep. Told insurance underwriter that he has not been to sleep well despite taking Benadryl. Requests to be prescribed a different medication for sleep. Patient was educated about sleep hygiene as well as Hypnotic properties and adverse-effects of Trazadone. He agreed to try it Total face to face time:: 25 Mental Status Exam - Mental Status Exam Alert and Oriented to: Time, Place, Person Cognitive Function: Fair Patient Appearance: Well Groomed Mood: Hopeful, Euthymic Affect: Appropriate Patient Behavior: Cooperative Speech Pattern: Clear Voice Loudness: Normal Thought Process: Intact Thought Disorder: Not Present Hallucinations: Denies Suicidal Ideation: Denies Homicidal Ideation: Denies Insight/Judgement: Fair Sleep: Poorly Appetite: Good Muscle strength/Tone: Normal Gait/Station: Normal Psychiatric Treatment Plan - Problem List (1) Opioid dependence with withdrawal Current Visit: Yes (2) Cannabis abuse Current Visit: No (3) Opioid dependence on agonist therapy Current Visit: Yes (4) Nicotine dependence Current Visit: Yes Qualifiers: Nicotine product type: cigarettes Substance use status: in withdrawal Qualified Code(s): F17.213 - Nicotine dependence, cigarettes, with withdrawal (5) Eczema of eyelid Current Visit: Yes Comment: FACE + NECK TRIAM (6) Substance-induced anxiety disorder Current Visit: Yes Initial treatment plan: 1) Start Trazadone 100 mg po HS for insomnia. 2) Monitor progress
[2016-11-24] MEDS: THIAMINE HCL 100 MG TABLET (FP) PO SCH (21:37)
[2016-11-24] MEDS ORDERED: traZODone HCL 100 MG TABLET (FP) PO SCH (22:00)
[2016-11-25] MEDS ORDERED: METHADONE HCL 5 MG TABLET ONE (05:05)
[2016-11-25] MEDS ORDERED: METHADONE HCL 10 MG TABLET ONE (05:05)
[2016-11-25] MEDS: METHADONE 30 MG, METHADONE 5 MG PO SCH (06:50)
[2016-11-25 07:46] VITALS: BP 127/80; PULSE 64; TEMP 97.4
[2016-11-25] MEDS: PRENATAL VITAMINS W/ FOLIC ACID TABLET (FP) PO SCH (10:18)
[2016-11-25] MEDS: TRIAMCINOLONE ACET 0.5% OINT 15 GM TUBE TP SCH ×2 (10:19→14:24)
[2016-11-25] MEDS: NICOTINE 14 MG/24 HOURS TOPICAL PATCH TD SCH (10:19)
[2016-11-25] MEDS: NICOTINE POLACRILEX 2 MG GUM BC PRN (10:20)
[2016-11-25] MEDS: hydrOXYzine PAMOATE 50 MG CAPSULE (FP) PO PRN (10:20)
--- NOTE | 2016-11-25 15:44 | PN ---
[facility] Progress Note Note: Was called by the nurse about patient decision to leave treatment earlier, reviewed the chart, patient on trazodone, however er he reported that he does not need scripts.Discharge order was placed. Patient stable for discharge.
== END 2016-11-25 17:00 | disposition home or self-care (01) | DRG 772 ==
LOC: YASAS 14:47 → Y3W 19:02
PROVIDERS: ADMIT Psychiatry & Neurology Psychiatry; ATTEND Psychiatry & Neurology Psychiatry
PROC: HZ42ZZZ Group Counseling for Substance Abuse Treatment, Cognitive-Behavioral (ICD-10-PCS; principal; 2016-11-25)
DX: F11.23 Opioid dependence with withdrawal (principal); F17.210 Nicotine dependence, cigarettes, uncomplicated; F12.10 Cannabis abuse, uncomplicated; F19.24 Other psychoactive substance dependence with psychoactive substance-induced mood disorder; L30.8 Other specified dermatitis
CPT/HCPCS: 36415; 80053; 81003; 85027; 86593; 87389; 93005; 93010

== ENCOUNTER 2017-01-23 19:54 | Inpatient (IN) | payer OTHER ==
--- NOTE | 2017-01-23 21:08 | HP ---
COWS - Scale Resting Pulse: 1= [place] 81-100 Sweatin=Flushed/Facial Moisture Restless Observation: 3= Extraneous Movement Pupil Size: 2= Moderately Dilated Bone or Joint Aches: 2= Severe Diffuse Aches Runny Nose/ Eye Tearin= Runny Nose/Eyes GI Upset > 30mins: 2= Nausea/Diarrhea Tremor Observation: 2= Slight Tremor Visible Yawning Observation: 2= >3x During Session Anxiety or Irritability: 2=Irritable/Anxious Goose Flesh Skin: 0=Smooth Skin COWS Score: 20 CIWA Score - CIWA Score Nausea/Vomitin Muscle Tremors: 3 Anxiety: 3 Agitation: 3 Paroxysmal Sweats: 3 Orientation: 0-Oriented Tacttile Disturbances: 2-Mild Itch/Numbness/Burn Auditory Disturbances: 2-Mild Harshness/Frighten Visual Disturbances: 2-Mild Sensitivity Headache: 2-Mild CIWA-Ar Total Score: 23 Admission ROS BHS - HPI Chief Complaint: i need help help to stop using drugs heroin and xanax Allergies/Adverse Reactions: Allergies Allergy/AdvReac Type Severity Reaction Status Date / Time No Known Allergies Allergy Verified 11/16/16 22:32 History of Present Illness: this 26 years old male male seeking help to stop using drugs heroin and xanax multiple admissions in detox withdrawal symptom nicotine dependence longest period sobriety 6 months Exam Limitations: No Limitations - Ebola screening Have you traveled outside of the country in the last 21 days: No (N) Have you had contact with anyone from an Ebola affected area: No Do you have a fever: No - Review of Systems Constitutional: Chills, Diaphoresis, Loss of Appetite, Malaise, Night Sweats, Changes in sleep, Weight Stable EENT: reports: Tearing, Nose Congestion Respiratory: reports: No Symptoms reported Cardiac: reports: Palpitations GI: reports: Diarrhea, Nausea, Vomiting, Indigestion : reports: No Symptoms Reported Musculoskeletal: reports: Back Pain, Joint Pain, Muscle Pain, Joint Stiffness Integumentary: reports: Dryness Neuro: reports: Headache, Tremors Endocrine: reports: No Symptoms Reported Hematology: reports: No Symptoms Reported Psychiatric: reports: No Sypmtoms Reported Patient History - Patient Medical History Hx Anemia: Yes (no medication) Hx Asthma: No Hx Chronic Obstructive Pulmonary Disease (COPD): No Hx Cancer: No Hx Cardiac Disorders: No Hx Congestive Heart Failure: No Hx Hypertension: No Hx Hypercholesterolemia: No Hx Pacemaker: No HX Cerebrovascular Accident: No Hx Seizures: No Hx Dementia: No Hx Diabetes: No Hx Gastrointestinal Disorders: No Hx Liver Disease: No Hx Genitourinary Disorders: No Hx Sexually Transmitted Disorders: No Hx Renal Disease (ESRD): No Hx Thyroid Disease: No Hx Human Immunodeficiency Virus (HIV): No (NEGATIVE HX last 12/10 negative) Hx Hepatitis C: No Hx Depression: No Hx Suicide Attempt: No Hx Bipolar Disorder: No Hx Schizophrenia: No Other Medical History: no suicidal,no homicidal - Patient Surgical History Past Surgical History: No Hx Neurologic Surgery: No Hx Cataract Extraction: No Hx Cardiac Surgery: No Hx Lung Surgery: No Hx Breast Surgery: No Hx Breast Biopsy: No Hx Abdominal Surgery: No Hx Appendectomy: No Hx Cholecystectomy: No Hx Genitourinary Surgery: No Hx Orthopedic Surgery: No Anesthesia Reaction: No - PPD History Previous Implant?: Yes Date: 10/17/16 Results: 0 mm PPD to be Administered?: No - Smoking Cessation Smoking history: Current every day smoker Have you smoked in the past 12 months: Yes Aproximately how many cigarettes per day: 20 Cigars Per Day: 0 Hx Chewing Tobacco Use: No Initiated information on smoking cessation: Yes 'Breaking Loose' booklet given: 01/23/17 - Substance & Tx. History Hx Alcohol Use: No Hx Substance Use: Yes Substance Use Type: Cocaine, Heroin, Marijuana, Tranquilizers Hx Substance Use Treatment: Yes ([facility] 10/12) - Substances Abused Heroin Route: Injection Frequency: Daily Amount used: 10 bags Age of first use: 25 Date of Last Use: 01/22/17 Alprazolam (Xanax) Route: Oral Frequency: Daily Amount used: 8mgs to 10 mgs Age of first use: 23 Date of Last Use: 01/22/17 Cocaine Route: Inhalation Frequency: 1-3 times last 30 days Amount used: 100$ Age of first use: 23 Date of Last Use: 01/22/17 Marijuana/Hashish Route: Smoking Frequency: 1-3 times last 30 days Amount used: 10$ Age of first use: 15 Date of Last Use: 01/23/17 Family Disease History - Family Disease History Family Disease History: Diabetes: Grandparent, Other: Father (HTN) Admission Physical Exam [facility] - Vital Signs Vital Signs: Vital Signs Temperature 97.2 F L 01/23/17 21:23 Pulse Rate 81 01/23/17 21:23 Respiratory Rate 20 01/23/17 21:23 Blood Pressure 144/72 01/23/17 21:23 O2 Sat by Pulse Oximetry (%) - Physical General Appearance: Yes: Moderate Distress, Alcohol on Breath, Intoxicated, Tremorous, Irritable, Sweating, Anxious HEENTM: Yes: Hearing grossly Normal, Normal ENT Inspection, ZOEY, Pharynx Normal Respiratory: Yes: Lungs Clear Neck: Yes: Within Normal Limits, Supple, Trachea in good position Breast: Yes: Within Normal Limits Cardiology: Yes: Within Normal Limits, Regular Rhythm, Regular Rate, S1, S2 Abdominal: Yes: Within Normal Limits, Normal Bowel Sounds, Non Tender, Flat, Soft Genitourinary: Yes: Within Normal Limits Back: Yes: Within Normal Limits, Normal Inspection, Muscle Spasm Musculoskeletal: Yes: full range of Motion, Back pain, Joint Stiffness, Muscle Pain Extremities: Yes: Within Normal Limits, Normal Range of Motion, Tremors Neurological: Yes: customer marketing intern II-XII NML intact, Fully Oriented, Alert, Motor Strength 5/5 Integumentary: Yes: Dry, Track Gutierres Lymphatic: Yes: Within Normal Limits - Diagnostic (1) Opioid dependence with withdrawal Current Visit: No Status: Acute (2) Uncomplicated sedative, hypnotic or anxiolytic withdrawal Current Visit: Yes Status: Acute (3) Cocaine dependence Current Visit: Yes Status: Acute (4) Cannabis dependence Current Visit: Yes Status: Acute (5) Weight loss Current Visit: Yes Status: Acute (6) Nicotine dependence Current Visit: No Status: Acute Qualifiers: Nicotine product type: cigarettes Substance use status: in withdrawal Qualified Code(s): F17.213 - Nicotine dependence, cigarettes, with withdrawal Cleared for Admission [facility] - Detox or Rehab [facility] Level of Care: Medically Managed Detox Regimen/Protocol: Methadone/Valium [facility] Breath Alcohol Content Breath Alcohol Content: 0 Vital Signs - Vital Signs Vital Signs Refused: No Temperature: 97.2 F Temperature Source: Oral Pulse Rate: 81 Respiratory Rate: 20 Blood Pressure: 144/72 BP Location: Left Arm - Height Height: 5 ft 8 in - Weight Weight: 165 lb Weight Measurement Method: Standing Scale Body Mass Index (BMI): 25.0 Urine Drug Screen - Test Device Lot Number: [id number] Expiration Date: 08/25/18 - Control Is Test Valid: Yes - Results Drug Screen Negative: No Urine Drug Screen Results: THC-Marijuana, SAMAN-Cocaine, OPI-Opiates, BZO- Benzodiazepines, OXY-Oxycodone
[2017-01-23 21:24] VITALS: BMI 25.0
[2017-01-23] MEDS ORDERED: MAGNESIUM HYDROX 2400MG/30ML ORAL SUSPENSION 30 ML CUP PO PRN (21:37)
[2017-01-23] MEDS ORDERED: IBUPROFEN 400 MG TABLET (FP) PO PRN (21:37)
[2017-01-23] MEDS ORDERED: NICOTINE POLACRILEX 2 MG GUM BUC PRN (21:37)
[2017-01-23] MEDS ORDERED: guaiFENesin/D-METHORPHAN HB 10 ML UNIT-DOSE CUPS PO PRN (21:37)
[2017-01-23] MEDS ORDERED: diazePAM 5 MG TABLET PO ONE (21:37)
[2017-01-23] MEDS ORDERED: MENTHOL/PHENOL 1 EACH UD MM PRN (21:37)
[2017-01-23] MEDS ORDERED: MAG HYDROX/AL HYDROX/SIMETH 30 ML UNIT-DOSE CUP PO PRN (21:37)
[2017-01-23] MEDS ORDERED: MAGNESIUM CITRATE 300 ML BOTTLE PO PRN (21:37)
[2017-01-23] MEDS ORDERED: hydrOXYzine PAMOATE 50 MG CAPSULE (FP) PO PRN (21:37)
[2017-01-23] MEDS ORDERED: LOPERAMIDE HCL 2 MG CAPSULE PO PRN (21:37)
[2017-01-23] MEDS ORDERED: ACETAMINOPHEN 325 MG TABLET (FP) PO PRN (21:37)
[2017-01-23] MEDS ORDERED: P-EPHED 60MG/TRIPROLIDI 2.5MG TABLET PO PRN (21:37)
[2017-01-23] MEDS: METHADONE HCL 10 MG TABLET (FOR DETOX USE ONLY) PO ONE (22:02)
[2017-01-23] MEDS: cloNIDine HCL 0.1 MG TABLET PO SCH (22:03)
[2017-01-23] MEDS: NICOTINE 21 MG/24 HOURS TOPICAL PATCH TD SCH (22:03)
[2017-01-23] MEDS: diazePAM 5 MG TABLET PO SCH (22:04)
[2017-01-23] MEDS: THIAMINE HCL 100 MG TABLET (FP) PO SCH (22:05)
[2017-01-23] MEDS ORDERED: METHADONE HCL 10 MG TABLET (FOR DETOX USE ONLY) PO ONE (23:00)
[2017-01-24] MEDS: CYCLOBENZAPRINE HCL 10 MG TABLET (FP) PO PRN (05:52)
[2017-01-24] MEDS: diazePAM 5 MG TABLET PO SCH ×3 (05:52→22:26)
[2017-01-24] MEDS ORDERED: METHADONE HCL 10 MG TABLET (FOR DETOX USE ONLY) PO SCH (10:00)
[2017-01-24 10:01] LABS: MCH 25.9 pg (25.7-33.7); MCHC 32.8 g/dl (32.0-35.9); MEAN CELL VOLUME 78.8 fl (80-96); MEAN PLT VOLUME 8.2 fl (7.5-11.1); PLATELET COUNT 301 K/MM3 (134-434); RDW 15.6 % (11.9-15.9); WHITE BLOOD COUNT 4.3 K/mm3 (4.0-10.0)
[2017-01-24 10:03] LABS: ALBUMIN 3.9 g/dl (3.4-5.0); ANION GAP 8 (8-16); CALCIUM 8.8 mg/dL (8.5-10.1); CO2 29 mmol/L (21-32); GLUCOSE,RANDOM 104 mg/dL (74-106)
[2017-01-24 10:07] LABS: ALK PHOS 77 U/L (45-117); BILIRUBIN,TOTAL 0.4 mg/dL (0.2-1.0); COCKROFT - GAULT 105.83; CREATININE 1.1 mg/dL (0.7-1.3); SGOT/AST 15 U/L (15-37); SGPT/ALT 22 U/L (12-78); TOT PROT 6.9 g/dl (6.4-8.2)
--- NOTE | 2017-01-24 10:16 | EKG ---
Test Reason : Blood Pressure : / mmHG Vent. Rate : 053 BPM Atrial Rate : 053 BPM P-R Int : 130 ms QRS Dur : 094 ms QT Int : 516 ms P-R-T Axes : 015 085 025 degrees QTc Int : 484 ms SINUS BRADYCARDIA VOLTAGE CRITERIA FOR LEFT VENTRICULAR HYPERTROPHY NONSPECIFIC ST ABNORMALITY PROLONGED QT ABNORMAL ECG WHEN COMPARED WITH ECG OF 16-NOV-2016 21:01, NO SIGNIFICANT CHANGE WAS FOUND Confirmed by ROSALINDA KAPOOR MD ([id number]) on 01/24/2017 10:16:14 AM Referred By: Confirmed By:ROSALINDA KAPOOR MD
[2017-01-24] MEDS: diazePAM 5 MG TABLET PO PRN ×2 (10:23→17:06)
[2017-01-24] MEDS: cloNIDine HCL 0.1 MG TABLET PO SCH ×2 (10:23→22:26)
[2017-01-24] MEDS: NICOTINE 21 MG/24 HOURS TOPICAL PATCH TD SCH (10:24)
[2017-01-24] MEDS: PRENATAL VITAMINS W/ FOLIC ACID TABLET (FP) PO SCH (10:24)
--- NOTE | 2017-01-24 12:07 | PN ---
BHS COWS - Scale Resting Pulse: 0= [place] 80 or Below Sweatin=Flushed/Facial Moisture Restless Observation: 1= Difficult to Sit Still Pupil Size: 0= Normal to Room Light Bone or Joint Aches: 2= Severe Diffuse Aches Runny Nose/ Eye Tearin= Runny Nose/Eyes GI Upset > 30mins: 2= Nausea/Diarrhea Tremor Observation of Outstretched Hands: 2= Slight Tremor Visible Yawning Observation: 1= 1-2x During Session Anxiety or Irritability: 2=Irritable/Anxious Goose Flesh Skin: 0=Smooth Skin COWS Score: 14 BHS Progress Note (SOAP) Subjective: Anxiety,tremors,sweating,interrupted sleep,restless Objective: 01/24/17 12:00 Vital Signs - 8 hr 01/24/17 01/24/17 06:46 09:20 Temperature 97.3 F L 97.0 F L Pulse Rate 72 60 Respiratory 18 20 Rate Blood Pressure 105/68 100/65 Laboratory Last Values WBC 4.3 K/mm3 (4.0-10.0) 01/24/17 07:00 RBC 4.80 M/mm3 (4.00-5.60) 01/24/17 07:00 Hgb 12.4 GM/dL (11.7-16.9) 01/24/17 07:00 Hct 37.8 % (35.4-49) 01/24/17 07:00 MCV 78.8 fl (80-96) L 01/24/17 07:00 MCHC 32.8 g/dl (32.0-35.9) 01/24/17 07:00 RDW 15.6 % (11.9-15.9) 01/24/17 07:00 Plt Count 301 K/MM3 (134-434) 01/24/17 07:00 MPV 8.2 fl (7.5-11.1) 01/24/17 07:00 Sodium 138 mmol/L (136-145) 01/24/17 07:00 Potassium 3.9 mmol/L (3.5-5.1) 01/24/17 07:00 Chloride 101 mmol/L (98-107) 01/24/17 07:00 Carbon Dioxide 29 mmol/L (21-32) 01/24/17 07:00 Anion Gap 8 (8-16) 01/24/17 07:00 BUN 18 mg/dL (7-18) D 01/24/17 07:00 Creatinine 1.1 mg/dL (0.7-1.3) D 01/24/17 07:00 Creat Clearance w eGFR > 60 (>60) 01/24/17 07:00 Random Glucose 104 mg/dL (74-106) D 01/24/17 07:00 Calcium 8.8 mg/dL (8.5-10.1) 01/24/17 07:00 Total Bilirubin 0.4 mg/dL (0.2-1.0) 01/24/17 07:00 AST 15 U/L (15-37) 01/24/17 07:00 ALT 22 U/L (12-78) 01/24/17 07:00 Alkaline Phosphatase 77 U/L (45-117) 01/24/17 07:00 Total Protein 6.9 g/dl (6.4-8.2) 01/24/17 07:00 Albumin 3.9 g/dl (3.4-5.0) 01/24/17 07:00 labs noted Assessment: 01/24/17 12:07 Withdrawal sx. Plan: Continue detox
[2017-01-24] MEDS: diphenhydrAMINE HCL 50 MG CAPSULE PO PRN (22:27)
[2017-01-24] MEDS: THIAMINE HCL 100 MG TABLET (FP) PO SCH (22:44)
[2017-01-25] MEDS: diazePAM 5 MG TABLET PO PRN ×3 (05:27→17:10)
[2017-01-25] MEDS: PRENATAL VITAMINS W/ FOLIC ACID TABLET (FP) PO SCH (09:59)
[2017-01-25] MEDS: diazePAM 5 MG TABLET PO SCH ×2 (10:02→22:15)
[2017-01-25] MEDS: cloNIDine HCL 0.1 MG TABLET PO SCH ×2 (10:03→22:15)
[2017-01-25] MEDS: METHADONE HCL 5 MG TABLET (FOR DETOX USE ONLY) PO SCH (10:03)
[2017-01-25] MEDS: NICOTINE 21 MG/24 HOURS TOPICAL PATCH TD SCH (10:03)
--- NOTE | 2017-01-25 10:19 | PN ---
[facility] CIWA - CIWA Score Nausea/Vomitin-No Nausea/No Vomiting Muscle Tremors: 4-Moderate,w/Arms Extend Anxiety: 4-Mod. Anxious/Guarded Agitation: 4-Moderately Restless Paroxysmal Sweats: 1-Minimal Palms Moist Orientation: 0-Oriented Tacttile Disturbances: 3-Moderate Itch/Numb/Burn Auditory Disturbances: 0-None Visual Disturbances: 0-None Headache: 0-None Present CIWA-Ar Total Score: 16 BHS COWS - Scale Resting Pulse: 0= [place] 80 or Below Sweatin= Chills/Flushing Restless Observation: 3= Extraneous Movement Pupil Size: 2= Moderately Dilated Bone or Joint Aches: 4=Acute Joint/Muscle Pain Runny Nose/ Eye Tearin= Nasal Congestion GI Upset > 30mins: 1= Stomach Cramp Tremor Observation of Outstretched Hands: 1= Tremor [place], Not Seen Yawning Observation: 1= 1-2x During Session Anxiety or Irritability: 1=Feels Anxious/Irritable Goose Flesh Skin: 0=Smooth Skin COWS Score: 15 [facility] Progress Note (SOAP) Subjective: ANXIETY,SWEATS,IRRITABILITY,INTERMITTENT SLEEP. Objective: 01/25/17 10:19 Vital Signs Temperature 96.5 F L 01/25/17 09:55 Pulse Rate 75 01/25/17 09:55 Respiratory Rate 18 01/25/17 09:55 Blood Pressure 110/71 01/25/17 09:55 O2 Sat by Pulse Oximetry (%) Laboratory Last Values WBC 4.3 K/mm3 (4.0-10.0) 01/24/17 07:00 RBC 4.80 M/mm3 (4.00-5.60) 01/24/17 07:00 Hgb 12.4 GM/dL (11.7-16.9) 01/24/17 07:00 Hct 37.8 % (35.4-49) 01/24/17 07:00 MCV 78.8 fl (80-96) L 01/24/17 07:00 MCHC 32.8 g/dl (32.0-35.9) 01/24/17 07:00 RDW 15.6 % (11.9-15.9) 01/24/17 07:00 Plt Count 301 K/MM3 (134-434) 01/24/17 07:00 MPV 8.2 fl (7.5-11.1) 01/24/17 07:00 Sodium 138 mmol/L (136-145) 01/24/17 07:00 Potassium 3.9 mmol/L (3.5-5.1) 01/24/17 07:00 Chloride 101 mmol/L (98-107) 01/24/17 07:00 Carbon Dioxide 29 mmol/L (21-32) 01/24/17 07:00 Anion Gap 8 (8-16) 01/24/17 07:00 BUN 18 mg/dL (7-18) D 01/24/17 07:00 Creatinine 1.1 mg/dL (0.7-1.3) D 01/24/17 07:00 Creat Clearance w eGFR > 60 (>60) 01/24/17 07:00 Random Glucose 104 mg/dL (74-106) D 01/24/17 07:00 Calcium 8.8 mg/dL (8.5-10.1) 01/24/17 07:00 Total Bilirubin 0.4 mg/dL (0.2-1.0) 01/24/17 07:00 AST 15 U/L (15-37) 01/24/17 07:00 ALT 22 U/L (12-78) 01/24/17 07:00 Alkaline Phosphatase 77 U/L (45-117) 01/24/17 07:00 Total Protein 6.9 g/dl (6.4-8.2) 01/24/17 07:00 Albumin 3.9 g/dl (3.4-5.0) 01/24/17 07:00 RPR Titer Nonreactive (NONREACTIVE) 01/24/17 07:00 Assessment: 01/25/17 10:19 WITHDRAWAL SX Plan: CONTINUE DETOX
[2017-01-25] MEDS: CYCLOBENZAPRINE HCL 10 MG TABLET (FP) PO PRN (13:10)
[2017-01-25] MEDS: diphenhydrAMINE HCL 50 MG CAPSULE PO PRN (22:16)
[2017-01-25] MEDS: THIAMINE HCL 100 MG TABLET (FP) PO SCH (22:17)
[2017-01-26] MEDS: diazePAM 5 MG TABLET PO PRN ×3 (01:05→12:57)
[2017-01-26] MEDS: CYCLOBENZAPRINE HCL 10 MG TABLET (FP) PO PRN (06:02)
[2017-01-26] MEDS: PRENATAL VITAMINS W/ FOLIC ACID TABLET (FP) PO SCH (10:27)
[2017-01-26] MEDS: diazePAM 5 MG TABLET PO SCH (10:27)
[2017-01-26] MEDS: cloNIDine HCL 0.1 MG TABLET PO SCH (10:27)
[2017-01-26] MEDS: METHADONE HCL 5 MG TABLET (FOR DETOX USE ONLY) PO SCH (10:27)
[2017-01-26] MEDS: NICOTINE 21 MG/24 HOURS TOPICAL PATCH TD SCH (10:27)
--- NOTE | 2017-01-26 10:49 | PN ---
BHS Progress Note (SOAP) Subjective: ANXIETY,SWEATS/CHILLS,BODY ACHES Objective: 01/26/17 10:49 Vital Signs Temperature 97.3 F L 01/26/17 09:29 Pulse Rate 85 01/26/17 09:29 Respiratory Rate 20 01/26/17 09:29 Blood Pressure 122/78 01/26/17 09:29 O2 Sat by Pulse Oximetry (%) Laboratory Last Values WBC 4.3 K/mm3 (4.0-10.0) 01/24/17 07:00 RBC 4.80 M/mm3 (4.00-5.60) 01/24/17 07:00 Hgb 12.4 GM/dL (11.7-16.9) 01/24/17 07:00 Hct 37.8 % (35.4-49) 01/24/17 07:00 MCV 78.8 fl (80-96) L 01/24/17 07:00 MCHC 32.8 g/dl (32.0-35.9) 01/24/17 07:00 RDW 15.6 % (11.9-15.9) 01/24/17 07:00 Plt Count 301 K/MM3 (134-434) 01/24/17 07:00 MPV 8.2 fl (7.5-11.1) 01/24/17 07:00 Sodium 138 mmol/L (136-145) 01/24/17 07:00 Potassium 3.9 mmol/L (3.5-5.1) 01/24/17 07:00 Chloride 101 mmol/L (98-107) 01/24/17 07:00 Carbon Dioxide 29 mmol/L (21-32) 01/24/17 07:00 Anion Gap 8 (8-16) 01/24/17 07:00 BUN 18 mg/dL (7-18) D 01/24/17 07:00 Creatinine 1.1 mg/dL (0.7-1.3) D 01/24/17 07:00 Creat Clearance w eGFR > 60 (>60) 01/24/17 07:00 Random Glucose 104 mg/dL (74-106) D 01/24/17 07:00 Calcium 8.8 mg/dL (8.5-10.1) 01/24/17 07:00 Total Bilirubin 0.4 mg/dL (0.2-1.0) 01/24/17 07:00 AST 15 U/L (15-37) 01/24/17 07:00 ALT 22 U/L (12-78) 01/24/17 07:00 Alkaline Phosphatase 77 U/L (45-117) 01/24/17 07:00 Total Protein 6.9 g/dl (6.4-8.2) 01/24/17 07:00 Albumin 3.9 g/dl (3.4-5.0) 01/24/17 07:00 RPR Titer Nonreactive (NONREACTIVE) 01/24/17 07:00 LABS NOTED Assessment: 01/26/17 10:49 WITHDRAWAL SX Plan: CONTINUE DETOX
[2017-01-26 13:10] VITALS: BP 118/73; PULSE 88; TEMP 97
--- NOTE | 2017-01-26 13:18 | DS ---
[facility] Detox Discharge Summary Admission Date: 01/23/17 Discharge Date: 01/26/17 - History Present History: Cannabis Dependence, Cocaine Dependence, Opioid Dependence, Sedative Dependence Additional Comments: PT DECLINED TO COMPLETE DETOX FOR PERSONAL REASONS. ALL INTERVENTIONS WERE NOT FRUITFUL FOR PT TO RECONSIDER CONTINUING TREATMENT. Pertinent Past History: [facility]ZEMA - Physical Exam Results Vital Signs: Vital Signs Temperature 97.0 F L 01/26/17 13:08 Pulse Rate 88 01/26/17 13:08 Respiratory Rate 18 01/26/17 13:08 Blood Pressure 118/73 01/26/17 13:08 O2 Sat by Pulse Oximetry (%) Pertinent Admission Physical Exam Findings: WITHDRAWAL SX Laboratory Last Values WBC 4.3 K/mm3 (4.0-10.0) 01/24/17 07:00 RBC 4.80 M/mm3 (4.00-5.60) 01/24/17 07:00 Hgb 12.4 GM/dL (11.7-16.9) 01/24/17 07:00 Hct 37.8 % (35.4-49) 01/24/17 07:00 MCV 78.8 fl (80-96) L 01/24/17 07:00 MCHC 32.8 g/dl (32.0-35.9) 01/24/17 07:00 RDW 15.6 % (11.9-15.9) 01/24/17 07:00 Plt Count 301 K/MM3 (134-434) 01/24/17 07:00 MPV 8.2 fl (7.5-11.1) 01/24/17 07:00 Sodium 138 mmol/L (136-145) 01/24/17 07:00 Potassium 3.9 mmol/L (3.5-5.1) 01/24/17 07:00 Chloride 101 mmol/L (98-107) 01/24/17 07:00 Carbon Dioxide 29 mmol/L (21-32) 01/24/17 07:00 Anion Gap 8 (8-16) 01/24/17 07:00 BUN 18 mg/dL (7-18) D 01/24/17 07:00 Creatinine 1.1 mg/dL (0.7-1.3) D 01/24/17 07:00 Creat Clearance w eGFR > 60 (>60) 01/24/17 07:00 Random Glucose 104 mg/dL (74-106) D 01/24/17 07:00 Calcium 8.8 mg/dL (8.5-10.1) 01/24/17 07:00 Total Bilirubin 0.4 mg/dL (0.2-1.0) 01/24/17 07:00 AST 15 U/L (15-37) 01/24/17 07:00 ALT 22 U/L (12-78) 01/24/17 07:00 Alkaline Phosphatase 77 U/L (45-117) 01/24/17 07:00 Total Protein 6.9 g/dl (6.4-8.2) 01/24/17 07:00 Albumin 3.9 g/dl (3.4-5.0) 01/24/17 07:00 RPR Titer Nonreactive (NONREACTIVE) 01/24/17 07:00 - Treatment Hospital Course: Discharged Condition Good - Medication Discharge Medications: Ambulatory Orders NK [No Known Home Medication] 10/15/16 - Diagnosis (1) Uncomplicated sedative, hypnotic or anxiolytic withdrawal Status: Acute (2) Nicotine dependence Status: Acute Qualifiers: Nicotine product type: cigarettes Substance use status: in withdrawal Qualified Code(s): F17.213 - Nicotine dependence, cigarettes, with withdrawal (3) Opioid dependence with withdrawal Status: Acute (4) Cannabis dependence Status: Acute (5) Cocaine dependence Status: Acute - AMA Did Patient Leave Against Medical Advice: Yes (AMA)
[2017-01-27] MEDS ORDERED: METHADONE HCL 10 MG TABLET (FOR DETOX USE ONLY) PO SCH (10:00)
[2017-01-27] MEDS ORDERED: diazePAM 5 MG TABLET PO SCH (10:00)
[2017-01-28] MEDS ORDERED: METHADONE HCL 5 MG TABLET (FOR DETOX USE ONLY) PO SCH (06:00)
== END 2017-01-26 13:30 | disposition left against medical advice (07) | DRG 770 ==
LOC: YASAS 19:54 → Y3N 21:28
PROVIDERS: ADMIT Internal Medicine; ATTEND Internal Medicine
PROC: HZ2ZZZZ Detoxification Services for Substance Abuse Treatment (ICD-10-PCS; principal; 2017-01-23)
DX: F11.23 Opioid dependence with withdrawal (principal); F13.230 Sedative, hypnotic or anxiolytic dependence with withdrawal, uncomplicated; F14.20 Cocaine dependence, uncomplicated; F12.20 Cannabis dependence, uncomplicated; F17.213 Nicotine dependence, cigarettes, with withdrawal; Z87.898 Personal history of other specified conditions
CPT/HCPCS: 36415; 80053; 85027; 86593; 93005; 93010